=== PATIENT | male | born 1965 | race African-American/Black ===

== ENCOUNTER 2020-08-13 16:50 | Emergency (ER) | payer MEDICAID ==
[~2020-08-13] VITALS: Ht 172.7 cm; Wt 100.0 kg
[2020-08-13 19:18] LABS: CLARITY URINE CLEAR (CLEAR); COLOR URINE YELLOW (YELLOW); KETONES URINE TRACE (NEGATIVE); LEUKOCYTE ESTERASE URINE NEGATIVE (NEGATIVE); NITRITE URINE NEGATIVE (NEGATIVE); OCCULT BLOOD URINE NEGATIVE (NEGATIVE); PROTEIN URINE NEGATIVE (NEGATIVE); SPECIFIC GRAVITY URINE 1.018 (1.005-1.030); UROBILINOGEN URINE 0.2 E.U./dL (0.2-1.0)
[2020-08-13 22:16] VITALS: BP 145/98
== END 2020-08-13 22:18 | disposition home or self-care (01) ==
LOC: ER 16:50 → CANBEDREQ 20:55 → ER 22:18
DX: N43.3 Hydrocele, unspecified (principal); N50.811 Right testicular pain; I10 Essential (primary) hypertension; Z88.8 Allergy status to other drugs, medicaments and biological substances
CPT/HCPCS: 74176; 76870; 81003; 93005; 93976; 99285

== ENCOUNTER 2022-06-14 14:57 | Inpatient (IN) | payer MEDICAID, OTHER ==
[~2022-06-14] VITALS: Ht 172.7 cm; Wt 96.4 kg
[2022-06-14 17:56] LABS: BASOPHILS % 1.1 % (0.0-2.0); EOSINOPHILS % 6.9 % (0.0-5.0); HEMATOCRIT. 40.8 % (42.0-52.0); HEMOGLOBIN. 13.5 g/dL (14.0-18.0); LYMPHOCYTES % 48.9 % (20.0-50.0); MEAN CORPUSCULAR HEMOGLOBIN 28.9 pg (28.0-32.0); MEAN CORPUSCULAR VOLUME 87.2 fL (80.0-94.0); MEAN PLATELET VOLUME 8.6 fl (7.4-10.4); MONOCYTES % 8.6 % (2.0-8.0); NEUTROPHILS % 34.5 % (40.0-76.0); PLATELET 196 x1000/uL (130-400); RED BLOOD CELL COUNT 4.68 mill/uL (4.7-6.1); RED CELL DISTRIBUTION WIDTH 14.3 % (11.6-14.6)
[2022-06-14 17:59] LABS: CHLORIDE 107 mEq/L (98-107)
[2022-06-14 18:00] LABS: PROTHROMBIN TIME 10.4 sec (9.6-11.0)
[2022-06-15 00:55] LABS: CLARITY URINE CLEAR (CLEAR); COLOR URINE YELLOW (YELLOW); KETONES URINE NEGATIVE (NEGATIVE); LEUKOCYTE ESTERASE URINE NEGATIVE (NEGATIVE); NITRITE URINE NEGATIVE (NEGATIVE); OCCULT BLOOD URINE NEGATIVE (NEGATIVE); PH URINE 5.5 (4.5-8.0); PROTEIN URINE NEGATIVE (NEGATIVE); SPECIFIC GRAVITY URINE 1.016 (1.005-1.030); UROBILINOGEN URINE 0.2 E.U./dL (0.2-1.0)
[2022-06-15 04:00] VITALS: BP 152/75
[2022-06-15] MEDS ORDERED: NALOXONE HCL 0.4MG/ML VIAL IV PRN (05:45)
[2022-06-15 07:40] VITALS: BP 121/79
[2022-06-15] MEDS: ASPIRIN 81MG TABLET PO SCH (09:16)
[2022-06-15] MEDS: AMLODIPINE 5MG TABLET PO SCH (09:17)
[2022-06-15] MEDS: METOPROLOL TARTRATE 25MG TABLET PO SCH ×2 (09:18→20:52)
[2022-06-15] MEDS: ENOXAPARIN 30MG/0.3ML SYR SUBCUT SCH ×2 (09:20→20:52)
[2022-06-15] MEDS: HYDROCODONE/ACETAMINOPHEN 5/325MG TABLET PO PRN ×2 (09:46→17:03)
[2022-06-15 11:27] VITALS: BP 116/77
[2022-06-15 16:00] VITALS: BP 129/92
[2022-06-15 20:00] VITALS: BP 151/89
[2022-06-15] MEDS: ATORVASTATIN CALCIUM 40MG TABLET PO SCH (20:51)
[2022-06-16] VITALS: BP 120/73
[2022-06-16] MEDS: HYDROCODONE/ACETAMINOPHEN 5/325MG TABLET PO PRN ×3 (01:15→15:01)
[2022-06-16 05:13] VITALS: BP 122/76
[2022-06-16 07:33] VITALS: BP 148/92
[2022-06-16] MEDS: AMLODIPINE 5MG TABLET PO SCH (09:08)
[2022-06-16] MEDS: ENOXAPARIN 30MG/0.3ML SYR SUBCUT SCH ×2 (09:08→21:25)
[2022-06-16] MEDS: ASPIRIN 81MG TABLET PO SCH (09:08)
[2022-06-16] MEDS: METOPROLOL TARTRATE 25MG TABLET PO SCH ×2 (09:08→21:27)
[2022-06-16 12:00] VITALS: BP 147/98
[2022-06-16 16:32] VITALS: BP 138/86
[2022-06-16 21:15] VITALS: BP 137/90
[2022-06-16] MEDS: ATORVASTATIN CALCIUM 40MG TABLET PO SCH (21:26)
[2022-06-17] VITALS: BP 135/94
[2022-06-17] MEDS: HYDROCODONE/ACETAMINOPHEN 5/325MG TABLET PO PRN (01:07)
[2022-06-17 05:19] VITALS: BP 133/66
[2022-06-17] MEDS: ASPIRIN 81MG TABLET PO SCH (09:13)
[2022-06-17] MEDS: ENOXAPARIN 30MG/0.3ML SYR SUBCUT SCH (09:13)
[2022-06-17] MEDS: AMLODIPINE 5MG TABLET PO SCH (09:13)
[2022-06-17] MEDS: METOPROLOL TARTRATE 25MG TABLET PO SCH (09:14)
[2022-06-17 11:00] VITALS: BP 129/84
[2022-06-17 11:37] VITALS: BP 129/84
== END 2022-06-17 12:25 | disposition home or self-care (01) | DRG 347 ==
LOC: ER 14:57 → EDBEDREQTM 23:22 → EDBEDREQ 23:22 → MICUSO 06-15 00:09 → 3WST 06-15 04:08
PROVIDERS: ADMIT Internal Medicine; ATTEND Internal Medicine
DX: M48.00 Spinal stenosis, site unspecified (principal); N17.0 Acute kidney failure with tubular necrosis; E66.9 Obesity, unspecified; I10 Essential (primary) hypertension; Z82.49 Family history of ischemic heart disease and other diseases of the circulatory system; Z68.32 Body mass index [BMI] 32.0-32.9, adult
CPT/HCPCS: 36415; 70551; 71045; 80053; 80061; 81003; 84484; 85025; 93005; 97166; 99291; J1650